=== PATIENT | female | born 1950 | race Caucasian/White ===

== ENCOUNTER 2017-01-09 18:44 | Emergency (ER) | payer MEDICARE, OTHER ==
--- NOTE | 2017-01-09 19:11 | ED ---
General Adult HPI - General Chief complaint: Extremity Injury, Lower Stated complaint: RT ANKLE Time Seen by Provider: 01/09/17 18:54 Source: patient, RN notes reviewed Mode of arrival: wheelchair Limitations: no limitations - History of Present Illness Initial comments: Chief complaint history of present illness a 66-year-old female reports that she slipped this [place]. Injuring her left knee and right ankle and foot. No other problems. - Related Data Home Medications Medication Instructions Recorded Confirmed FLUoxetine HCL [PROzac] 20 mg PO DAILY 01/27/16 01/09/17 Ascorbic Acid [Vitamin C] 1,000 mg PO DAILY 01/09/17 01/09/17 Calcium Carbonate [Calcium] 600 mg PO DAILY 01/09/17 01/09/17 Cholecalciferol [Vitamin D3] 3,000 unit PO DAILY 01/09/17 01/09/17 Cyanocobalamin (Vitamin B-12) 1,000 mcg PO DAILY 01/09/17 01/09/17 [Vitamin B-12] LORazepam [Ativan] 1 mg PO DAILY PRN 01/09/17 01/09/17 Multivitamin [Multivitamins Adult 2 tab PO DAILY 01/09/17 01/09/17 Gummies] Ubidecarenone [Co Q-10] 100 mg PO DAILY 01/09/17 01/09/17 Vitamin B Complex 1 cap PO DAILY 01/09/17 01/09/17 oxyCODONE-APAP 5-325MG [Percocet 0.5 tab PO DAILY PRN 01/09/17 01/09/17 5-325 mg] Allergies Allergy/AdvReac Type Severity Reaction Status Date / Time cephalexin monohydrate Allergy Unknown Rash/Hives Unverified 01/09/17 19:53 [From Keflex] Review of Systems ROS Statement: Those systems with pertinent positive or pertinent negative responses have been documented in the HPI. Review of systems no headache no chest pain or shortness of breath no GI/ complaints of problems no neuro deficits. The patient's complaint is pain to her left knee and right ankle right foot. This occurred approximately 9 hours ago. All systems are reviewed. Past medical problems MS the patient states she chooses not to believe. She does smoke she has COPD. She's had angina in the past but no pain now. The patient had 5 benign breast biopsies. Patient's family history includes cancers of the prostate, colon and brain. The patient has ALLERGIES to cephalexin. She does smoke strongly encouraged to stop drinks alcohol socially. ROS Other: All systems not noted in ROS Statement are negative. Past Medical History Past Medical History: Chest Pain / Angina, COPD Additional Past Medical History / Comment(s): HX CHEST PAIN 2011 DX [place] DEC 2015 History of Any Multi-Drug Resistant Organisms: None Reported Past Surgical History: Breast Surgery Additional Past Surgical History / Comment(s): HX 5 BREAST BIOPSIES - ALL NEGATIVE PER PT Past Psychological History: Anxiety Smoking Status: Current every day smoker Past Alcohol Use History: Occasional Past Drug Use History: Marijuana - Past Family History Father Family Medical History: Cancer, Coronary Artery Disease (CAD) Mother Additional Family Medical History / Comment(s): HEAD ANEURYSM - CAUSED Brother(s) Family Medical History: Cancer Additional Family Medical History / Comment(s): MOUTH CANCER Sister(s) Family Medical History: No Reported History General Exam - General Exam Comments Initial Comments: General: The patient is awake and alert, complaint of pain left knee and right ankle right foot. Vital signs temp 98.7 pulse 88 respiratory rate 18 pulse ox 99% room air blood pressure 125/82 Neck: No complaint of neck pain Cardiovascular: Chest pain or palpitations. Respiratory: No complaint of shortness of breath. Patient does smoke strongly encouraged to stop Back: No back pain Musculoskeletal: Pain in the left knee, discomfort with varus valgus or drawer testing. History of arrived in the femur. Neurovascular status to the feet are intact. Pain swelling and ecchymosis right ankle lateral right foot. Neurological: No neuro deficits Limitations: no limitations Course Vital Signs 01/09/17 18:47 Temperature 98.7 F Pulse Rate 88 Respiratory 18 Rate Blood Pressure 125/82 O2 Sat by Pulse 99 Oximetry Medical Decision Making - Medical Decision Making X-ray of the left knee was done and reviewed by radiologist his impression is there is deformity of the lateral tibial condyle related to a vertical fracture through the tibial plateau. There was slight impaction. The fibula appears intact. Joint spaces are normal. There is probably a small knee joint effusion. There is an intramedullary irwin in the femur. Impression was a fracture of the lateral tibial plateau with slight impaction. As read by Dr. Person X-ray of the right ankle was done and reviewed by radiology his impression is no acute abdomen on the right ankle. As read by Dr. Person X-ray of the right foot was done and reviewed by radiologist his impression is calcification of the anterior talus is probably due to an old injury. Acute chip fracture cannot be entirely excluded. As read by Dr. Person Patient will have a knee immobilizer placed on her left knee. Advised to use crutches and follow-up with her orthopedic surgeon. Disposition Clinical Impression: Fracture of left tibial plateau, Sprain of foot, right Disposition: HOME SELF-CARE Condition: Fair Instructions: Leg Fracture (ED), Foot Contusion (ED), Hematoma (ED) Additional Instructions: Wear immobilizer. Use crutches or walker or wheelchair. Follow-up with your orthopedic surgeon no weightbearing. Ice to the bruise on her foot. Take pain medications available she was at home. Referrals: Qasim Harrell MD [Primary Care Provider] - 1-2 days Time of Disposition: 20:19
--- NOTE | 2017-01-09 19:32 | XR ---
EXAMINATION TYPE: XR ankle complete RT DATE OF EXAM: 01/09/2017 COMPARISON: NONE HISTORY: Foot pain TECHNIQUE: 3 views FINDINGS: Ankle mortise is anatomic. Joint spaces are normal. There is some calcification anterior to the talus on the lateral view the could be a due to old injury. IMPRESSION: No acute abnormality of the right ankle.
--- NOTE | 2017-01-09 19:33 | XR ---
EXAMINATION TYPE: XR foot complete RT DATE OF EXAM: 01/09/2017 COMPARISON: NONE HISTORY: Foot pain TECHNIQUE: 3 views FINDINGS: There is possible tiny avulsion nondisplaced chip fracture of the anterior talus at the leidy onavicular joint. The metatarsals are intact. Joint spaces are normal.. IMPRESSION: Calcification of the anterior talus is probably due to an old injury. Acute chip fracture cannot be entirely excluded.
--- NOTE | 2017-01-09 19:34 | XR ---
EXAMINATION TYPE: XR knee complete LT DATE OF EXAM: 01/09/2017 COMPARISON: NONE HISTORY: Foot pain TECHNIQUE: 3 views FINDINGS: There is deformity of the lateral tibial condyle related to a vertical fracture through the tibial plateau. There is slight impaction. The fibula appears intact. Joint spaces are normal. There is probably a small knee joint effusion. There is an intramedullary irwin in the femur. IMPRESSION: There is a fracture of the lateral tibial plateau with slight impaction.
[2017-01-09 20:34] VITALS: BP 120/80; PULSE 80; RESP 17; TEMP 98.6
== END 2017-01-09 20:35 | disposition home or self-care (01) ==
LOC: EC 18:44
DX: S82.141A Displaced bicondylar fracture of right tibia, initial encounter for closed fracture (principal); S93.601A Unspecified sprain of right foot, initial encounter; F17.200 Nicotine dependence, unspecified, uncomplicated; Z88.1 Allergy status to other antibiotic agents; Z79.899 Other long term (current) drug therapy; W18.40XA Slipping, tripping and stumbling without falling, unspecified, initial encounter; Y92.833 Campsite as the place of occurrence of the external cause
CPT/HCPCS: 99283; 73562; 73610; 73630; L1830

== ENCOUNTER 2017-04-06 15:58 | Emergency (ER) | payer MEDICARE, OTHER ==
[2017-04-06 16:13] VITALS: RESP 18
--- NOTE | 2017-04-06 17:12 | ED ---
General Adult HPI - General Chief complaint: Extremity Injury, Upper Stated complaint: Neck Pain Time Seen by Provider: 04/06/17 16:18 Source: patient, RN notes reviewed Mode of arrival: ambulatory Limitations: no limitations - History of Present Illness Initial comments: This is a 67-year-old female who presents to the emergency department with chief complaint of upper chest pain. Patient states that she has a history of multiple sclerosis. She reports that she has had 3 episodes today of sharp shooting pain from one arm to the other arm across upper chest along her clavicle that lasts 13 seconds in duration. She states it feels like an electrode is placed at both upper arms and she is being shocked. She believes this is related to her diagnosis of multiple sclerosis. Patient states she was doing nothing specific when these episodes came on. Denies shortness of breath or diaphoresis. She called her [place] doctor who advised her to present to the emergency department. Denies fever, chills, chest pain, shortness of breath, abdominal pain, nausea or vomiting, constipation or diarrhea, dysuria or hematuria, numbness or tingling, headache or vision changes. - Related Data Home Medications Medication Instructions Recorded Confirmed FLUoxetine HCL [PROzac] 20 mg PO DAILY 01/27/16 04/06/17 Allergies Allergy/AdvReac Type Severity Reaction Status Date / Time cephalexin monohydrate Allergy Unknown Rash/Hives Verified 04/06/17 16:12 [From [email or web address]] Review of Systems ROS Statement: Those systems with pertinent positive or pertinent negative responses have been documented in the HPI. ROS Other: All systems not noted in ROS Statement are negative. Past Medical History Past Medical History: Chest Pain / Angina, COPD Additional Past Medical History / Comment(s): HX CHEST PAIN 2011 DX [place] DEC 2015 History of Any Multi-Drug Resistant Organisms: None Reported Past Surgical History: Breast Surgery Additional Past Surgical History / Comment(s): HX 5 BREAST BIOPSIES - ALL NEGATIVE PER PT Past Psychological History: Anxiety Smoking Status: Current every day smoker Past Alcohol Use History: Occasional Past Drug Use History: Marijuana - Past Family History Father Family Medical History: Cancer, Coronary Artery Disease (CAD) Mother Additional Family Medical History / Comment(s): HEAD ANEURYSM - CAUSED Brother(s) Family Medical History: Cancer Additional Family Medical History / Comment(s): MOUTH CANCER Sister(s) Family Medical History: No Reported History General Exam - General Exam Comments Initial Comments: General: Awake and alert, well-developed; in no apparent distress. HEENT: Head atraumatic, normocephalic. Pupils are equal, round and reactive to light. Extraocular movements intact. Oropharynx moist without erythema or exudate. Neck: Supple. Normal ROM. Cardiovascular: Regular rate and rhythm. No murmurs, rubs or gallops. Chest symmetrical. Chest is nontender to palpation. Respiratory: Lungs clear to auscultation bilaterally. No wheezes, rales or rhonchi. Normal respiratory effort with no use of accessory muscles. Musculoskeletal: Normal ROM, no tenderness of bilateral upper and lower extremities. Strength 5/5 bilateral upper and lower extremities. Radial pulses are 2+ equal and palpable bilaterally. Skin: Colstrip, warm and dry without rashes or lesions. Neurological: Alert and oriented x3. CN II-XII grossly intact. Speech is fluent and answers are appropriate. No focal neuro deficits. Finger-nose testing normal. Rapid alternating movements normal. Romberg negative. Psychiatric: Normal mood and affect. No overt signs of depression or anxiety noted. Limitations: no limitations Course Vital Signs 04/06/17 16:08 Temperature 98.5 F Pulse Rate 86 Respiratory 18 Rate Blood Pressure 107/66 O2 Sat by Pulse 98 Oximetry EKG Findings - EKG Comments: EKG Findings:: EKG at 16:48:15. Sinus bradycardia, incomplete right bundle- branch block, borderline ECG. Ventricular rate 59 bpm. AR interval 196. QRS duration 98. QT/QTC 406/401. Medical Decision Making - Medical Decision Making This is a 67-year-old female who presents to the emergency department chief complaint of upper chest pain. Patient believes this is related to her diagnosis of multiple sclerosis. She states she has had 3 episodes of intermittent sharp shooting pain across upper chest from arm to arm. Patient denies shortness of breath or diaphoresis. EKG revealed sinus bradycardia with an incomplete right bundle branch block. Chest x-ray revealed no acute abnormalities. This case was discussed with attending physician, Dr. Arias. Patient is in no acute distress at this time and wishes to be discharged home. She'll be discharged home with recommendation to follow-up with her primary care provider and her doctor who provides care for her multiple sclerosis within 1-2 days. Patient is in agreement to the plan and voiced understanding. All questions were answered. - Radiology Data Radiology results: report reviewed Chest x-ray findings: There is no focal airspace opacity, pleural effusion or pneumothorax seen. The cardiac silhouette size is within normal limits. The osseous structures remain demineralized. Impression: No acute cardiopulmonary process. No significant change from prior. Disposition Clinical Impression: Paroxysmal nerve pain Disposition: HOME SELF-CARE Condition: Good Instructions: Thoracic Pain (ED) Additional Instructions: Please follow up with your doctor who provides care for your multiple sclerosis within 1-2 days. Please follow up with primary care provider within 1-2 days. Return to emergency department if symptoms should worsen or any concerns arise. Referrals: Qasim Harrell MD [Primary Care Provider] - 1-2 days Time of Disposition: 17:31
--- NOTE | 2017-04-06 17:18 | XR ---
EXAMINATION TYPE: XR chest 2V DATE OF EXAM: 04/06/2017 COMPARISON: Chest x-ray January 21, 2016 HISTORY: Chest pain. TECHNIQUE: Frontal and lateral views of the chest are obtained. FINDINGS: There is no focal air space opacity, pleural effusion, or pneumothorax seen. The cardiac silhouette size is within normal limits. The osseous structures remain demineralized. IMPRESSION: No acute cardiopulmonary process. No significant change from prior.
[2017-04-06 17:37] VITALS: BP 105/66; PULSE 88; TEMP 98.4
== END 2017-04-06 17:37 | disposition home or self-care (01) ==
LOC: EC 15:58
DX: M79.2 Neuralgia and neuritis, unspecified (principal); R07.9 Chest pain, unspecified; R00.1 Bradycardia, unspecified; I45.10 Unspecified right bundle-branch block; F41.9 Anxiety disorder, unspecified; F17.200 Nicotine dependence, unspecified, uncomplicated; Z88.1 Allergy status to other antibiotic agents; Z79.899 Other long term (current) drug therapy
CPT/HCPCS: 71020; 93005; 99283

== ENCOUNTER → 2017-08-27 | Outpatient (CLI) | payer MEDICARE, OTHER ==
--- NOTE | 2017-08-28 22:09 | MR ---
EXAMINATION TYPE: MR brain wo/w con DATE OF EXAM: 08/27/2017 COMPARISON: NONE HISTORY: Dizziness, MS CONTRAST: Performed utilizing 5.5 mL intravenous Gadavist gadolinium contrast. TECHNIQUE: Multiplanar, multisequence imaging of the brain is performed on a 3.0 Angie magnet. Demye linating disease protocol with additional Sagittal Flair sequence is performed. Study is performed wi thin 24 hours of arrival to the hospital. FINDINGS: T2 White Matter Lesions Present : Yes Approximate Number of Lesions: Multiple scattered Locations Identified : Centrum semiovale subcortical white matter periventricular white matter Size of Largest Lesion(s): 1. 0.6 x 0.7 x 1.2 cm. Location: Subcortical white matter left parietal lobe Sequence 501 Image 20 ( axial) and Sequence 601 Image 9 (sagittal). 2. 0.7 x 0.6 x 0.7 cm. Location: Right subcortical parietal watershed region Sequence 501 Image 21 (axial) and Sequence 601 Image 31 (sagittal). Enhancing Lesion(s) Present: No Change from Prior: Number of lesions appears stable. Lesion visibility is improved of the smallest le sions on the current study although significant increase in size is not identified. Diffusion-weighted imaging is performed. No abnormal hyperintensity is present to suggest an acute i ntracranial infarct or acute ischemic change. Ventricles and sulci are appropriate for the patient age. There are no abnormal extra-axial fluid collections. The ventricular system and cisternal spaces are normal in size and appearance. The brain volume is age appropriate. The craniocervical junction babak ears within normal limits. The dural venous sinuses appear patent. No abnormal enhancement is present on post contrast images. . There is some mild mucosal thickening w ithin the mid left ethmoid air cells. Some mild mucosal thickening within the frontal sinuses greater on the left. Mastoid air cells are clear. IMPRESSION: 1. Multiple bilateral punctate subcortical and deep white matter changes which are nonspecific but c an be compatible with patient's reported multiple sclerosis. The smallest lesions are slightly more c onspicuous currently although no significant change in number or size appreciated.
== END | disposition home or self-care (01) ==
LOC: RADMRIMAIN 09:18
PROVIDERS: ATTEND Nurse Practitioner Acute Care
DX: R90.82 White matter disease, unspecified (principal); G93.9 Disorder of brain, unspecified
CPT/HCPCS: 82565; 84520; 70553; 36415; A9581

== ENCOUNTER → 2017-11-01 | Outpatient (CLI) | payer MEDICARE, OTHER ==
--- NOTE | 2017-11-01 08:56 | US ---
EXAMINATION TYPE: US thyroid st tissue head/neck DATE OF EXAM: 11/01/2017 COMPARISON: NONE CLINICAL HISTORY: E83.52 hypercalcemia. Hypercalcemia GLAND SIZE: Right Lobe: 4.6 x 1.4 x 1.7 cm Overall Parenchyma: homogenous Left Lobe: 4.5 x 1.0 x 1.5 cm Overall Parenchyma: homogeneous Isthmus Thickness: 0.3 cm NODULES RIGHT: # of nodules measured on right: 2 1. 0.7 X 0.4 x 0.6 cm isoechoic nodule at the lower pole with well-defined margins; . This nodule is wider than tall and shows intranodular vascularity. Prior size: no prior 2. 0.8 X 0.4 x 0.6 cm mixed nodule at the lower pole with well-defined margins; . This nodule is wi sandeep than tall and shows intranodular vascularity. Prior size: no prior LEFT: # of nodules measured on left: 0 ISTHMUS: # of nodules measured in the isthmus: 0 2 nodules lower right lobe IMPRESSION: There are 2 subcentimeter right-sided thyroid nodules.
== END | disposition home or self-care (01) ==
LOC: RADUSWWP 08:09
PROVIDERS: ATTEND Family Medicine
DX: E04.1 Nontoxic single thyroid nodule (principal)
CPT/HCPCS: 76536

== ENCOUNTER → 2018-02-22 | Outpatient (CLI) | payer MEDICARE, OTHER ==
--- NOTE | 2018-02-22 12:30 | BD ---
EXAMINATION TYPE: Axial Bone Density DATE OF EXAM: 02/22/2018 COMPARISON: 11/12/2014 CLINICAL HISTORY: 68-year-old female postmenopausal screening without HRT Height: 64 IN Weight: 121 LBS FRAX RISK QUESTIONS: History of Fracture in Adulthood: LT FOREARM AND WRIST FX AGE 63 APPROX; RT WRIST FX APPROX AGE 63; L EFT LEG/HIP ; RT ANKLE FX 2016 Secondary Osteoporosis: Current Tobacco Use: YES RISK FACTORS HISTORY OF: Hip Fracture (Left): LEFT When: 2016 History of Wrist Fracture: ADITYA WRIST When: SINCE AGE 63 Surgery to Hip(left): YES When: 2016 Active: YES Postmenopausal woman: AGE 54 Take estrogen and/or progesterone medications: NOT NOW How long: CONTROL AGE 15--20; FERTILITY MEDS AGE 21-23 MEDICATIONS: Additional Medications: DEPRESSION MEDS, ANXIETY MEDS, VITAMIN, CHONDROITIN, B STRESS, COQ10, EXAM MEASUREMENTS: Bone mineral densitometry was performed using the [email or web address] System. Bone mineral density as measured about the Lumbar spine is: ----- L1-L4(G/cm2): 0.848 T Score Values are as follows: ----- L2: -2.7 ----- L3: -2.7 ----- L4: -3.3 ----- L1-L4: -2.8 Bone mineral density has: Decreased -2.9% since study of: 11/12/2014 Bone mineral density about the R hip (g/cm2): 0.727 T Score values are as follows: -----R Neck: -2.2 -----R Total: -2.7 Bone mineral density has: Decreased -11.0% since study of: 11/12/2014 IMPRESSION: Osteoporosis (T Score less than -2.5). There is increased fracture risk and therapy is usually indicated based on age. Re-Screen 1-2 years. NOTE: T-SCORE=SD OF THE YOUNG ADULT MEAN.
== END | disposition home or self-care (01) ==
LOC: RADBDWWP 02-16 15:46
PROVIDERS: ATTEND Internal Medicine
DX: M81.0 Age-related osteoporosis without current pathological fracture (principal); Z78.0 Asymptomatic menopausal state
CPT/HCPCS: 77080

== ENCOUNTER → 2020-01-03 | Outpatient (CLI) | payer MEDICARE, OTHER ==
[2020-01-03 13:12] LABS: Ionized Calcium 5.5 mg/dL (4.5-5.3)
[2020-01-03 13:21] LABS: ALT 13 U/L (4-34); AST 22 U/L (14-36); African American GFR (CKD) >90 (>60 ml/min/1.73 sqM); Albumin 4.5 g/dL (3.5-5.0); Alkaline Phosphatase 66 U/L (38-126); Anion Gap 9 mmol/L; Blood Urea Nitrogen 10 mg/dL (7-17); Calcium 10.4 mg/dL (8.4-10.2); Carbon Dioxide 23 mmol/L (22-30); Chloride 105 mmol/L (98-107); Globulin 2.3 g/dL; Glucose 92 mg/dL (74-99); Non-African American GFR(CKD) 89 (>60 ml/min/1.73 sqM); Sodium 137 mmol/L (137-145); Total Bilirubin 0.5 mg/dL (0.2-1.3); Total Protein 6.8 g/dL (6.3-8.2)
== END | disposition home or self-care (01) ==
LOC: LABWHC1 12:17
PROVIDERS: ATTEND Internal Medicine
DX: E83.52 Hypercalcemia (principal)
CPT/HCPCS: 36415; 80053; 82306; 82330

== ENCOUNTER 2022-04-17 07:21 | Emergency (ER) | payer MEDICARE, OTHER ==
[2022-04-17 07:34] VITALS: BP 116/77; PULSE 70; RESP 16; TEMP 98
--- NOTE | 2022-04-17 08:10 | XR ---
Right hand. HISTORY: Pain following trauma. COMPARISON: None. TECHNIQUE: 3 views the right hand were obtained. FINDINGS: There is no fracture, dislocation, intraosseous or intra-articular abnormality. Soft tissues are unre markable. IMPRESSION: No significant abnormality seen.
[2022-04-17] MEDS ORDERED: oxyCODONE-APAP 7.5-325MG 1 EACH TAB PO STA (08:41)
[2022-04-17] MEDS ORDERED: ACET/COD 300 MG/30 MG STARTER PACK 6 TAB BTL PO STA (08:41)
--- NOTE | 2022-04-17 08:45 | ED ---
General Adult HPI - General Chief complaint: Extremity Injury, Upper Stated complaint: Broken hand Time Seen by Provider: 04/17/22 07:35 Source: patient Mode of arrival: ambulatory Limitations: no limitations - History of Present Illness Initial comments: Dictation was produced using [employer] dictation software. please excuse any grammatical, word or spelling errors. Chief Complaint: 72-year-old female presents emergency Department with left hand injury History of Present Illness: Is 72-year-old female she presents emergency Depart ment left hand injury. She is reaching refrigerator when something was falling she tried to catch it and jammed her left pinky. She states that her pinky finger was pointing laterally. She rushed to straighten it out. Patient complaining of significant pain at the left fifth digit MCP joint. The ROS documented in this emergency department record has been reviewed and confirmed by me. Those systems with pertinent positive or negative responses have been documented in the HPI. All other systems are other negative and/or noncontributory. PHYSICAL EXAM: General Impression: Alert and oriented x3, not in acute distress HEENT: Normocephalic atraumatic, extra-ocular movements intact, pupils equal and reactive to light bilaterally, mucous membranes moist. Cardiovascular: Heart regular rate and rhythm Chest: Able to complete full sentences, no retractions, no tachypnea Musculoskeletal: no peripheral edema Motor: no focal deficits noted Neurological: CN II-XII grossly intact, no focal motor or sensory deficits noted Skin: Intact with no visualized rashes Psych: Normal affect and mood. Left hand: There is some swelling, ecchymoses and palpatory tenderness at the fifth digit MCP joint ED course:-year-old female presents to the emergency department with suspected left fifth digit MCP dislocation. History suggests that patient had reduced the dislocation at home prior to arrival. Vital signs are stable. X-ray shows no occult fractures. Patient placed in a splint and given referral to hand specialist. Patient also given analgesics. Chart review was performed Critical Care: no Critical Care time: n/a - Related Data Home Medications Medication Instructions Recorded Confirmed FLUoxetine HCL [PROzac] 20 mg PO DAILY 01/27/16 04/06/17 Previous Rx's Medication Instructions Recorded HYDROcodone/APAP 5-325MG [Aline 1 tab PO Q6HR PRN 3 Days #12 tab 04/17/22 5-325] Allergies Allergy/AdvReac Type Severity Reaction Status Date / Time cephalexin monohydrate Allergy Unknown Rash/Hives Verified 04/17/22 07:33 [From Keflex] Review of Systems ROS Statement: Those systems with pertinent positive or pertinent negative responses have been documented in the HPI. ROS Other: All systems not noted in ROS Statement are negative. Past Medical History Past Medical History: Chest Pain / Angina, COPD Additional Past Medical History / Comment(s): HX CHEST PAIN 2011 [place] History of Any Multi-Drug Resistant Organisms: None Reported Past Surgical History: Breast Surgery Additional Past Surgical History / Comment(s): HX 5 BREAST BIOPSIES - ALL NEGATIVE PER PT Past Psychological History: Anxiety Smoking Status: Former smoker Past Alcohol Use History: Occasional Past Drug Use History: Marijuana - Past Family History Father Family Medical History: Cancer, Coronary Artery Disease (CAD) Mother Additional Family Medical History / Comment(s): HEAD ANEURYSM - CAUSED Brother(s) Family Medical History: Cancer Additional Family Medical History / Comment(s): MOUTH CANCER Sister(s) Family Medical History: No Reported History General Exam Limitations: no limitations Course Vital Signs 04/17/22 07:30 Temperature 98 F Pulse Rate 70 Respiratory 16 Rate Blood Pressure 116/77 O2 Sat by Pulse 97 Oximetry Disposition Clinical Impression: Finger dislocation Disposition: HOME SELF-CARE Condition: Good Instructions (If sedation given, give patient instructions): Finger Dislocation (ED) Prescriptions: HYDROcodone/APAP 5-325MG [Aline 5-325] 1 tab PO Q6HR PRN 3 Days #12 tab PRN Reason: Severe Pain Is patient prescribed a controlled substance at d/c from ED?: Yes If prescribed controlled substance>3 days was MAPS reviewed?: Prescribed <3 Days Referrals: Valente Guy DO [Doctor of Osteopathic Medicine] - 1-2 days Time of Disposition: 08:45
== END 2022-04-17 09:00 | disposition home or self-care (01) ==
LOC: EC 07:21
DX: S63.267A Dislocation of metacarpophalangeal joint of left little finger, initial encounter (principal); J44.9 Chronic obstructive pulmonary disease, unspecified; F41.9 Anxiety disorder, unspecified; F12.90 Cannabis use, unspecified, uncomplicated; Z87.891 Personal history of nicotine dependence; Z79.899 Other long term (current) drug therapy; Z88.1 Allergy status to other antibiotic agents; W23.1XXA Caught, crushed, jammed, or pinched between stationary objects, initial encounter
CPT/HCPCS: 99283

== ENCOUNTER → 2023-11-22 | Outpatient (CLI) | payer MEDICARE, OTHER ==
[2023-11-22 14:12] LABS: African American GFR (CKD) 56 (>60 ml/min/1.73 sqM); Blood Urea Nitrogen 20 mg/dL (7-17); Non-African American GFR(CKD) 49 (>60 ml/min/1.73 sqM)
--- NOTE | 2023-11-22 15:12 | CT ---
EXAMINATION TYPE: CT urogram wo/w con CT DLP: 783.3 mGycm, Automated exposure control for dose reduction was used. DATE OF EXAM: 11/22/2023 2:57 PM COMPARISON: . CT abdomen pelvis most recent from CLINICAL INDICATION:Female, 73 years old with history of R31.0 GROSS HEMATURIA; PHH, hematuria TECHNIQUE: Urogram with imaging of the abdomen and pelvis. Coronal and sagittal reformats were performed. 2D and 3D reconstructions are performed to assist visualization of the urinary tract on a separate workstat ion. Contrast used:80 mL of Isovue 370 without and with IV Contrast, Oral contrast used: None. FINDINGS: LOWER CHEST: No significant findings. GENITOURINARY: RIGHT KIDNEY AND URETER: Pelviectasis No calculi. No hydronephrosis or hydroureter. No renal mass or other lesions. No urothelial lesions: no filling defect, dilation, stricture or wall thickening. LEFT KIDNEY AND URETER: Pelviectasis. No calculi. No hydronephrosis or hydroureter. No renal mass or other lesions. Limited distal ureter secondary to lack of excreted IV contrast with that said urothel ial lesions: no filling defect, dilation, stricture or wall thickening. URINARY BLADDER: Not optimally distended. Limited evaluation secondary to partial filling of the blad sandeep with excreted IV contrast. No calculi or obvious mass. REPRODUCTIVE: Unremarkable. ABDOMEN LIVER: Unremarkable. GALLBLADDER AND BILE DUCTS: Unremarkable PANCREAS: Unremarkable. SPLEEN: Unremarkable. ADRENAL GLANDS: Unremarkable. STOMACH AND BOWEL: . No evidence of bowel obstruction. PERITONEUM: No evidence of pneumoperitoneum, free fluid, or adenopathy. VASCULATURE: No evidence of aortic aneurysm. MUSCULOSKELETAL: No acute osseous abnormalities, left hip fixation screw appears intact. LYMPH NODES: No gross evidence for lymphadenopathy. SOFT TISSUE/ABDOMINAL WALL: Unremarkable IMPRESSION: 1. No evidence of urolithiasis or renal/urothelial neoplasm. 2. Bilateral pelvocaliectasis no obstructing calculus visualized.
== END | disposition home or self-care (01) ==
LOC: RADCTMAIN 13:14
PROVIDERS: ATTEND Urology
DX: R31.1 Benign essential microscopic hematuria (principal)
CPT/HCPCS: 82565; 84520; 74178; 36415; 74400; Q9967